=== PATIENT | male | born 1945 | race Caucasian/White ===

== ENCOUNTER 2018-03-09 09:48 | Emergency (ER) | payer OTHER ==
[2018-03-09 10:07] VITALS: BP 129/76
--- NOTE | 2018-03-09 10:56 | EDPHY ---
H & P Time Seen by Provider: 03/09/18 09:53 HPI/ROS: CHIEF COMPLAINT: Ft laceration HISTORY OF PRESENT ILLNESS: Patient states yesterday he dropped scissors on his foot cutting his left middle toe. It has been bleeding intermittently since. He denies any other injuries. He has normal sensation and movement to that toe. Tetanus vaccination approximately 5 years ago. Patient is on aspirin but no other anticoagulation medications. REVIEW OF SYSTEMS: Negative except per HPI. General Appearance: Alert, no distress. Eyes: Pupils equal and round no icterus Respiratory: No respiratory distress Neurological: Awake, alert, no focal deficits. Skin: Warm and dry, no rashes. Musculoskeletal: Neck is supple nontender. Some vascular insufficiency to lower extremities, small laceration (4mm) to medial aspect of left middle toe, distal intact. Extremities are symmetrical, full range of motion, no edema. Psychiatric: Patient is oriented X 3, there is no agitation. Medical/surgical history: Traumatic brain injury, anxiety depression, high cholesterol. Social history: Denies drugs or alcohol, nonsmoker. Smoking Status: Never smoked Constitutional: Initial Vital Signs Temperature (C) 36.6 C 03/09/18 09:56 Heart Rate 69 03/09/18 09:56 Respiratory Rate 20 03/09/18 09:56 Blood Pressure 129/76 H 03/09/18 09:56 O2 Sat (%) 97 03/09/18 09:56 O2 Delivery Mode Room Air Allergies/Adverse Reactions: Penicillins Allergy (Verified 03/09/18 10:08) Sulfa (Sulfonamide Antibiotics) Allergy (Verified 03/09/18 10:12) Home Medications: Medication Instructions Recorded Aspirin 81mg (*) 03/09/18 Cymbalta 03/09/18 Klonopin (*) 03/09/18 Lovastatin 03/09/18 Sertraline HCl 03/09/18 Vesicare 03/09/18 Medical Decision Making Differential Diagnosis: Differential diagnosis includes but is not limited to fracture, dislocation, laceration, infection. On evaluations small flap laceration noted to the left toe as documented above. Tetanus vaccination up-to-date. As wound is 24 hr old will not suture as ris kof infection high. Offered delayed closure however sutures likely not needed as quite small. Plan is to clean and dress toe. Discussed direct pressure. Signs and symptoms of infection reviewed as well. Stable for discharge. Departure - Departure Disposition: Home, Routine, Self-Care Clinical Impression: Laceration of toe Condition: Good Instructions: Laceration (ED) Additional Instructions: Keep clean and dry as discussed. Return for any signs of infection. Referrals: FINN VELIZ [Primary Care Provider] - As per Instructions
== END 2018-03-09 11:10 | disposition home or self-care (01) ==
LOC: CED 09:48
DX: S91.115A Laceration without foreign body of left lesser toe(s) without damage to nail, initial encounter (principal); Z79.82 Long term (current) use of aspirin; W27.2XXA Contact with scissors, initial encounter